=== PATIENT | female | born 1965 | race Caucasian/White ===

== ENCOUNTER 2018-01-31 01:16 | Emergency (ER) | payer OTHER ==
[~2018-01-31] VITALS: Ht 167.6 cm; Wt 94.7 kg
[2018-01-31 02:03] LABS: HEMATOCRIT 42.3 % (36.0-46.0); HEMOGLOBIN 14.7 G/DL (11.9-15.5); MCHC 34.8 G/DL (30.0-36.0); PLATELET COUNT 369 K/uL (156-360); RBC DIS.WIDTH-CV 13.5 % (11.8-14.6); RBC DIS.WIDTH-SD 45.7 % (39-53); WHITE BLOOD COUNT 12.9 K/uL (4.1-10.2)
[2018-01-31 02:13] LABS: ALBUMIN 4.2 g/dL (3.2-4.8); CHLORIDE 103 mEq/L (99-109); POTASSIUM 3.5 mEq/L (3.7-5.4); SODIUM 140 mEq/L (136-147)
[2018-01-31 02:15] LABS: GLUCOSE 101 mg/dL (70-99); TOTAL PROTEIN 7.4 g/dL (6.4-8.3)
[2018-01-31 02:17] LABS: TOTAL BILIRUBIN 0.4 mg/dL (0.0-1.0)
[2018-01-31 02:18] LABS: SERUM ETHYL ALCOHOL < 10 mg/dL
[2018-01-31 02:19] LABS: ALKALINE PHOSPHATASE 79 IU/L (3-129); CREATININE 1.2 mg/dL (0.6-1.3); GFR ESTIMATE (CALCULATED) 50 mL/min/
[2018-01-31 02:20] LABS: APPEARANCE SL.HAZY ((CLEAR)); BILIRUBIN NEGATIVE; BLOOD LARGE; COLOR YELLOW ((YELLOW)); GLUCOSE (STRIP) NEGATIVE; KETONES NEGATIVE; LEUKOCYTES LARGE; NITRITE POSITIVE; PROTEIN (STRIP) 100; SPECIFIC GRAVITY 1.012 (1.000-1.030); UROBILINOGEN 0.2 MG/DL (0.2-1.0)
[2018-01-31 02:20] LABS: UREA NITROGEN (BUN) 23 mg/dL (9-23)
[2018-01-31 02:21] LABS: AST (GOT) 30 IU/L (2-34)
[2018-01-31 02:22] LABS: ALT (GPT) 40 IU/L (3-49); LIPASE 31 U/L (1.0-51.0)
[2018-01-31 02:24] LABS: BACTERIA RARE /HPF; EPITHELIAL CELLS RARE /HPF; MUCUS NONE SEEN /LPF; RED BLOOD CELLS TNTC /HPF (0-5); UCUL ADDED? YES; WHITE BLOOD CELLS TNTC /HPF (0-5)
[2018-01-31] MEDS ORDERED: FLEXERIL10 MG PO (03:54)
[2018-01-31] MEDS ORDERED: NORCO 5/3251 TABLET PO (03:54)
[2018-01-31 04:06] VITALS: BP 140/89
== END 2018-01-31 05:18 | disposition home or self-care (01) ==
LOC: EDBD 01:16 → EME 01:16
PROVIDERS: Emergency Medicine
DX: S40.022A Contusion of left upper arm, initial encounter (principal); S70.02XA Contusion of left hip, initial encounter; S20.212A Contusion of left front wall of thorax, initial encounter; N30.91 Cystitis, unspecified with hematuria; V43.52XA Car driver injured in collision with other type car in traffic accident, initial encounter; Y92.410 Unspecified street and highway as the place of occurrence of the external cause; Z79.02 Long term (current) use of antithrombotics/antiplatelets; Z79.82 Long term (current) use of aspirin; Z87.442 Personal history of urinary calculi; I25.2 Old myocardial infarction; Z86.711 Personal history of pulmonary embolism; F17.200 Nicotine dependence, unspecified, uncomplicated
CPT/HCPCS: 71260; 72129; 72132; 73090; 74177; 80053; 81003; 83690; 85027; 87077; 87086; 87186; 99281; 99284; G0480; J3010; J7030